=== PATIENT | male | born 1960 | race Caucasian/White ===

== ENCOUNTER 2018-03-17 11:47 | Emergency (ER) | payer BC, OTHER ==
--- NOTE | 2018-03-17 12:52 | EDPHY ---
H & P Stated Complaint: Swelling/redness/pain penile area~24hrs;abrasion to penis on Thursday Time Seen by Provider: 03/17/18 12:52 - Personal History Current Tetanus Diphtheria and Acellular Pertussis (TDAP): Yes - Medical/Surgical History Other PMH: neg per pt - Social History Smoking Status: Never smoked Constitutional: Initial Vital Signs Temperature (C) 36.5 C 03/17/18 11:50 Heart Rate 60 03/17/18 11:50 Respiratory Rate 16 03/17/18 11:50 Blood Pressure 146/91 H 03/17/18 11:50 O2 Sat (%) 98 03/17/18 11:50 O2 Delivery Mode Room Air Allergies/Adverse Reactions: No Known Allergies Allergy (Unverified 03/17/18 11:54) Home Medications: Medication Instructions Recorded predniSONE 40 mg PO DAILY #10 tab 03/17/18 Medical Decision Making - Diagnostics Imaging: Discussed imaging studies w/ call center rn Radiologist, I viewed and interpreted images myself ED Course/Re-evaluation: CHIEF COMPLAINT: Penile pain and redness HISTORY OF PRESENT ILLNESS: The patient is a 58 y/o male complaining of a swollen, red, and painful penis onset Thursday, 3 days ago. He was having intercourse and his partner was on top and sat down. When she sat down, he had an immediate pain and stopped having intercourse. The pain stopped but the next morning he had noticed a bump and discharge from the shaft. Denies rupture of the penis. The pain and swelling has since worsened. Denies urinary complaints, numbness, paresthesias, chest pain, shortness of breath, abdominal pain, fever. REVIEW OF SYSTEMS: A 10 point review of systems was performed and is negative with the exception of the elements mentioned in the history of present illness. PHYSICAL EXAM: HR, BP, O2 Sat, RR. Temp noted General Appearance: Alert, well hydrated, appropriate, and non-toxic appearing. Head: Atraumatic without scalp tenderness or obvious injury Eyes: Pupils equal, round, reactive to light and accommodation, EOMI, no trauma , no injection. Ears: Clear bilaterally, no perforation, normal landmarks Nose: Atraumatic, no rhinorrhea, clear. Throat: There is no erythema or exudates, no lesions, normal tonsils, mucus membranes moist. Neck: Supple, nontender, no lymphadenopathy. Respiratory: No retractions, no distress, no wheezes, and no accessory muscle use. Lungs are clear to auscultation bilaterally. Cardiovascular: Regular rate and rhythm, no murmurs, rubs, or gallops. Bilateral carotid, radial, dorsalis pedis, and posterior tibial pulses intact. Good capillary refill all extremities. Gastrointestinal: Abdomen is soft, nontender, non-distended, no masses, no rebound, no guarding, no peritoneal signs. Urogenital: Edema, erythema, and abrasion to shaft and scrotum. Shaft makes an un-natural right-angled bend. Musculoskeletal: Normal active ROM of all extremities, atraumatic. Neurological: Alert, appropriate, and interactive. Non-focal neuro. Skin: No rashes, good turgor, no nodules on palpation. Past medical history: Denies Past surgical history: Denies Family history: Denies Social history: Lives in [place], single, employed DIAGNOSTICS/PROCEDURES/CRITICAL CARE TIME: Pelvic MRI: No penile fracture DIFFERENTIAL DIAGNOSIS: The differential diagnosis for the patient's penile pain included but was not limited to penile trauma, sexual trauma, medication side effect, neurologic causes, outflow obstruction including prostatic hypertrophy, and infection. MEDICAL DECISION MAKING: The patient is a 58 y/o male complaining of a swollen, red, and painful penis onset Thursday, 3 days ago, while having sexual intercourse. On exam there is edema, erythema, and an abrasion to the shaft and scrotum. The shaft makes an un -natural right-angled bend. I will call urology to consult on this patient. 1L IV NS given. 1314: Consulted with Dr. Watson, urologist, regarding this patient; penile MRI and labs ordered. 1324: Spoke with Dr. Magallanes regarding patient and pelvic MRI. 1415: Consulted with Dr. Watson, who reports that the patient's injury does not look like a complete penile fracture. 190: spoke with Dr. Dean, radiologist, who reports there is no penile fracture. 1905: Reassessed patient and discussed imaging findings. I have advised him to keep his penis raised and wear compression underwear. I have prescribed him Prednisone and advised him to take Benadryl OTC. He will also need to followup with Dr. Watson on Thursday. Return precautions provided; patient is comfortable with this plan. - Data Points Laboratory Results: Laboratory Results 03/17/18 13:35 03/17/18 13:35 03/17/18 03/17/18 03/17/18 13:35 13:35 13:35 WBC 8.59 10^3/uL 10^3/uL (3.80-9.50) RBC 5.03 10^6/uL 10^6/uL (4.40-6.38) Hgb 16.2 g/dL g/dL (13.7-17.5) Hct 45.7 % % (40.0-51.0) MCV 90.9 fL fL (81.5-99.8) MCH 32.2 pg pg (27.9-34.1) MCHC 35.4 g/dL g/dL (32.4-36.7) RDW 12.2 % % (11.5-15.2) Plt Count 214 10^3/uL 10^3/uL (150-400) MPV 10.0 fL fL (8.7-11.7) Neut % (Auto) 72.2 % % (39.3-74.2) Lymph % (Auto) 14.7 % L % (15.0-45.0) [place] % (Auto) 7.8 % % (4.5-13.0) Eos % (Auto) 4.3 % % (0.6-7.6) Baso % (Auto) 0.3 % % (0.3-1.7) Nucleat RBC Rel Count 0.0 % % (0.0-0.2) Absolute Neuts (auto) 6.20 10^3/uL 10^3/uL (1.70-6.50) Absolute Lymphs (auto) 1.26 10^3/uL 10^3/uL (1.00-3.00) Absolute Monos (auto) 0.67 10^3/uL 10^3/uL (0.30-0.80) Absolute Eos (auto) 0.37 10^3/uL 10^3/uL (0.03-0.40) Absolute Basos (auto) 0.03 10^3/uL 10^3/uL (0.02-0.10) Absolute Nucleated RBC 0.00 10^3/uL 10^3/uL (0-0.01) Immature Gran % 0.7 % % (0.0-1.1) Immature Gran # 0.06 10^3/uL 10^3/uL (0.00-0.10) PT 13.9 SEC SEC (12.0-15.0) INR 1.05 (0.83-1.16) APTT 22.9 SEC L SEC (23.0-38.0) Sodium 143 mEq/L mEq/L (135-145) Potassium 4.2 mEq/L mEq/L (3.3-5.0) Chloride 109 mEq/L mEq/L (97-110) Carbon Dioxide 24 mEq/l mEq/l (22-31) Anion Gap 10 mEq/L mEq/L (8-16) BUN 13 mg/dL mg/dL (7-23) Creatinine 0.7 mg/dL mg/dL (0.7-1.3) Estimated GFR > 60 Glucose 99 mg/dL mg/dL (70-100) Calcium 9.5 mg/dL mg/dL (8.5-10.4) Urine Color Urine Appearance Urine pH Ur Specific [place] Urine Protein Urine Ketones Urine Blood Urine Nitrate Urine Bilirubin Urine Urobilinogen Ur Leukocyte Esterase Urine RBC Urine WBC Ur Epithelial Cells Urine Glucose 03/17/18 13:32 WBC RBC Hgb Hct MCV MCH MCHC RDW Plt Count MPV Neut % (Auto) Lymph % (Auto) [place] % (Auto) Eos % (Auto) Baso % (Auto) Nucleat RBC Rel Count Absolute Neuts (auto) Absolute Lymphs (auto) Absolute Monos (auto) Absolute Eos (auto) Absolute Basos (auto) Absolute Nucleated RBC Immature Gran % Immature Gran # PT INR APTT Sodium Potassium Chloride Carbon Dioxide Anion Gap BUN Creatinine Estimated GFR Glucose Calcium Urine Color PALE YELLOW Urine Appearance CLEAR Urine pH 7.0 (5.0-7.5) Ur Specific [place] 1.005 (1.002-1.030) Urine Protein NEGATIVE (NEGATIVE) Urine Ketones NEGATIVE (NEGATIVE) Urine Blood NEGATIVE (NEGATIVE) Urine Nitrate NEGATIVE (NEGATIVE) Urine Bilirubin NEGATIVE (NEGATIVE) Urine Urobilinogen NEGATIVE EU EU (0.2-1.0) Ur Leukocyte Esterase NEGATIVE (NEGATIVE) Urine RBC NONE SEEN /hpf /hpf (0-3) Urine WBC 1-3 /hpf /hpf (0-3) Ur Epithelial Cells NONE SEEN /lpf /lpf (NONE-1+) Urine Glucose NEGATIVE (NEGATIVE) Medications Given: Discontinued Medications Sodium Chloride (Ns) 1,000 mls @ 0 mls/hr IV EDNOW ONE; Wide Open PRN Reason: Protocol Stop: 03/17/18 13:26 Last Admin: 03/17/18 13:39 Dose: 1,000 mls Departure - Departure Disposition: Home, Routine, Self-Care Clinical Impression: Penile trauma Qualifiers: Encounter type: initial encounter Qualified Code(s): S39.94XA - Unspecified injury of external genitals, initial encounter Condition: Good Instructions: Hematoma (ED) Additional Instructions: 1. Keep your penis raised. 2. Wear compression underwear. 3. Do not have sex for 6 weeks. 4. Follow up with Dr. Watson on Thursday. 5. Take Prednisone as prescribed. 6. Buy Benadryl over the counter. 7. Return to the emergency apartment for fever, severe pain, inability to urinate or other concerns. Referrals: Robert Perla MD [Primary Care Provider] - As per Instructions Piter Watson MD [Medical Doctor] - As per Instructions Prescriptions: predniSONE 40 mg PO DAILY #10 tab Report Scribed for: Rajeev Thomason Report Scribed by: Radha Posada Date of Report: 03/17/18 Time of Report: 14:53
[2018-03-17] MEDS ORDERED: NS 1,000 ML IV ONE (13:25)
[2018-03-17 13:51] LABS: PLATELET COUNT 214 10^3/uL (150-400)
[2018-03-17 14:00] LABS: INR 1.05 (0.83-1.16); PROTIME(PATIENT) 13.9 SEC (12.0-15.0)
--- NOTE | 2018-03-17 14:39 | GHP ---
[f rep st] HISTORY AND PHYSICAL DATE OF ADMISSION: 03/17/2018 REASON FOR CONSULTATION: Penile trauma. HISTORY OF PRESENT ILLNESS: This is a pleasant 58-year-old gentleman who was having sexual intercour se with the cowgirl position on Thursday. He noticed some mild trauma and in some pain at the left bas e. He did not have any significant immediate swelling. He did notice swelling on Thursday, which grad ually progressed. He did have moderate morning erection in the interim. The patient does have a reaction with significant swelling with insect bites. PAST MEDICAL HISTORY: Negative. PAST SURGICAL HISTORY: Negative. MEDS: None. ALLERGIES: None. FAMILY HISTORY: Noncontributory. SOCIAL HISTORY: Nonsmoker, mild drinker. Works as commercial banker. REVIEW OF SYSTEMS: In all 12 systems is negative. PHYSICAL EXAM: VITAL SIGNS: Are reviewed in the chart. GENERAL: The patient is alert and oriented . Normal mood and affect. NECK: Supple. LUNGS: Respiratory effort is nonlabored. ABDOMEN: Soft, nontender, nondistended. He has no significant inguinal lymphadenopathy or inguinal hernia. GENITOU RINARY: shows significant penile edema without significant ecchymosis. There some very punctate ecch ymosis at the left base and upper scrotum with some associated scrotal swelling. The testes and epid idymis are grossly normal. EXTREMITIES: Grossly normal. ASSESSMENT: Probable mild penile trauma, unlikely to be a penile fracture. There is no significant bruising or ecchymosis to suggest a full-blown cavernosal tear. The overall edematous appearance is unusual for penile fracture and one could consider even the possibility of insect bite. PLAN: I recommended MR evaluation for penile fracture and then the patient should follow up with me on Thursday in the office for re-evaluation. He understands this, as well as to avoid sexual activity for 6 weeks or until further notice. /[id number]/MODL
[2018-03-17] MEDS ORDERED: GADOBUTROL 10 ML VIAL IVP ONE (16:46)
[2018-03-17] MEDS ORDERED: predniSONE 20 MG TAB PO ONE (19:04)
[2018-03-17 19:17] VITALS: BP 129/90
== END 2018-03-17 19:17 | disposition home or self-care (01) ==
DX: S39.94XA Unspecified injury of external genitals, initial encounter (principal); X58.XXXA Exposure to other specified factors, initial encounter
CPT/HCPCS: A9585; J7512